=== PATIENT | male | born 1970 | race Caucasian/White ===

== ENCOUNTER 2020-04-03 07:05 | Day surgery (SDC) | payer BC ==
[~2020-04-03] VITALS: Ht 185.4 cm; Wt 88.5 kg
--- NOTE | 2020-04-03 09:22 | NUR ---
04/03/20 0922 Ele Nguyen 0915-PATIENT ARRIVED TO PACU ON 4L NC PLACED ON 2L RR EVEN. BITE BLOCK IN MOUTH PATIENT REACTIVE TO VERBAL STIMULI BITE BLOCK REMOVED. ABDOMEN SOFT. IVF INFUSING. 09-PATIENT AWAKE DENIES PAIN OR NAUSEA. PLACED ON RA. RR EVEN.
--- NOTE | 2020-04-03 10:38 | OR ---
[facility] [address], [place] [address] Signed DATE OF OPERATION: 04/03/2020 SURGEON: Raphael Albarado MD PREOPERATIVE DIAGNOSES: 1. Chronic proximal esophageal dysphagia. 2. Gastroesophageal reflux disease. 3. Hiatal hernia. 4. Screening. POSTOPERATIVE DIAGNOSES: 1. Bxzoe-om-deqroufy sized hiatal hernia. 2. Distal esophageal stricture. 3. Diffuse gastroduodenitis. 4. 8 mm polyp at 35 cm. 5. 6 mm polyp at 30 cm. 6. Moderate internal anal skin tags x2. PROCEDURES: 1. EGD with CLOtest and biopsies of the pyloric bulb and antrum with balloon dilation (54-Estonian). 2. Colonoscopy with hot biopsy. ESTIMATED BLOOD LOSS: None. INDICATIONS: Robert is a 50-year-old gentleman, asked to see me for upper and lower endoscopy. Interestingly, he talks about proximal esophageal dysphagia for at least 10 years. He thinks it is getting worse. He points to the area that the sternal notch maybe even higher than that. He said solids are worse than liquids. 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 He also works in the [employer] down here for [employer] with very dirty jason work. Also, he drinks alcohol every day, but he also uses cocaine 2 to 3 times a week, which he told us this morning when we could not get him asleep with Versed and fentanyl. He does not take any medications specifically for the acid reflux. In addition, he has been asked to see me for screening colonoscopy. He tells me he has no lower GI complaints. There is no family history of colon cancer or polyps. In the office, I had given him pamphlets on both upper and lower endoscopy. He understands the nature of the 2 tests. He understands there is risk including, but not limited to gas bloating, crampy abdominal pain, bleeding, Electronically Signed By: RAPHAEL ALBARADO MD 04/03/20 1038 PATIENT NAME: ROBERT DOZIER OPERATIVE REPORT DATE OF : 70 REPORT #: [id number] PHYSICIAN: RAPHAEL ALABRADO MD PCP: DELPHINE FONTAINE MD REPORT IS CONFIDENTIAL AND NOT TO BE RELEASED WITHOUT AUTHORIZATION [facility] [address] [place] [id number] Signed perforation requiring surgery, and missed diagnosis. We also talked about the possibility of dilating potential stricture. In that regard, we had sent him for a barium swallow. At the C4-C5 level, there was a very slight narrowing in his upper esophagus. He does point to this location as the area of his symptoms. His motility seemed to be fine. He does have a bandlike narrowing at the GE junction. It seemed to relax with Valsalva maneuvers. He also has a small hiatal hernia with moderate reflux. In the office, I had explained all this to him. We also had reviewed the bowel prep. We also reviewed the need for IV sedation. I explained him our Versed and fentanyl may not be enough to get him asleep and he might need monitor anesthesia care with propofol. He had expressed understanding and wished to proceed. DESCRIPTION OF PROCEDURE: Robert was taken into our endoscopy suite and placed in a supine semi-recumbent position. The posterior oropharynx was anesthetized with lidocaine spray. A bite block was utilized for the upper endoscopy. We gave him 5 mg of Versed and 100 mcg of fentanyl and he was still wide awake, talking to us. Consequently, we had an anesthesia provider come and add propofol. We almost need ketamine. He required significant boluses of the propofol above and beyond his drip throughout his upper and lower endoscopy procedures. The adult gastroscope had been introduced and advanced under direct visualization of camera. The hypopharynx, vocal cords, and arytenoids were all fine. I did not specifically see or feel any type of narrowing in his upper esophagus. We did see the bandlike narrowing right at the GE junction. He has minimal disruption to the Z-line. There was no Watkins's mucosa. He does have a ratls-eh-xqobirbg sized hiatal hernia. The scope had been passed all the way out into the duodenum. The duodenum was unremarkable. However, the pyloric bulb and the stomach showed moderate gastroduodenitis. We took biopsies from the pyloric bulb and the antrum for pathologic review. In addition, biopsy came out of the antrum for CLOtest. Upon retroflexion of the scope, we could see that he does have a hlssp-bx-lrlnppug sized hiatal hernia. We had met resistance with the gastroscope as it went through this band here at the lower esophageal sphincter. Consequently, there was a little blood in his fundus at that time. The scope was withdrawn back up to this area and we inserted the 54-Estonian balloon dilator. It was inflated and held in place for a minute and then the balloon could easily pass back and forth while inflated at the GE junction. The balloon was let down and removed. All hemostasis was good at the GE junction. The distal middle and upper esophagus were unremarkable. After this, the gas was suctioned out and the gastroscope removed. Robert tolerated the upper endoscopy quite well. Robert was rotated into the left lateral decubitus position. He was maintained on IV sedation with the propofol. A digital rectal exam was performed and I could feel the two internal anal skin tags. Prostate is already becoming a little indurated at his age. The adult colonoscope was introduced and advanced quite readily into the cecum itself. We could easily see the appendiceal orifice and ileocecal valve. The scope was Electronically Signed By: RAPHAEL ABLARADO MD 04/03/20 1038 PATIENT NAME: ROBERT DOZIER OPERATIVE REPORT DATE OF : 70 REPORT #: [id number] PHYSICIAN: RAPHAEL ALBARADO MD PCP: DELPHINE FONTAINE MD REPORT IS CONFIDENTIAL AND NOT TO BE RELEASED WITHOUT AUTHORIZATION [facility] [address] [place], [place] [address] Signed slowly withdrawn. The scope was quite good. He had no diverticulosis. The above 2 mentioned polyps were easily removed with the help of a hot biopsy forceps. The rectum was unremarkable. Upon retroflexion of scope, he does have the 2 moderate internal anal skin tags. Really not much in the way of internal hemorrhoid tissue. After this, the gas was suctioned out and the colonoscope was removed. Robert tolerated the procedure quite well. RECOMMENDATIONS: I will see Robert back in my office in 7 to 14 days to review his results. If he remains symptomatic with his upper esophageal area, we could empirically dilate that with an Micronesian dilator. Raphael Albarado MD ALB/MODL /[id number] cc: MD Raphael Nava MD Copies: DELPHINE FONTAINE DMD, ANDREW L MD ~ Electronically Signed By: RAPHAEL ALBARADO MD 04/03/20 1038 PATIENT NAME: ROBERT DOZEIR OPERATIVE REPORT DATE OF : 70 REPORT #: [id number] PHYSICIAN: RAPHAEL ALBARADO MD PCP: DELPHINE FONTAINE MD REPORT IS CONFIDENTIAL AND NOT TO BE RELEASED WITHOUT AUTHORIZATION
--- NOTE | 2020-04-04 16:29 | PATH ---
[facility] [address], [place] [address] Signed SPECIMEN(S): A DUODENUM BULB SPECIMEN(S): B ANTRUM/PYLORUS SPECIMEN(S): C PROXIMAL SIGMOID POLYP AT 35 CM SPECIMEN(S): D SIGMOID POLYP AT 30 CM SPECIMEN SOURCE: A. DUODENUM BULB B. ANTRUM/PYLORUS C. PROXIMAL SIGMOID POLYP AT 35 CM D. SIGMOID POLYP AT 30 CM CLINICAL HISTORY: Screening colonoscopy and EGD. Dysphagia, GERD, esophageal stricture. MICROSCOPIC DESCRIPTION: Histologic sections of all submitted blocks are examined by light microscopy. These findings, together with the gross examination, support the pathologic diagnosis. FINAL PATHOLOGIC DIAGNOSIS: A. Duodenum, bulb, biopsy: - Duodenal mucosa with Rajeev's gland hyperplasia. - Negative for dysplasia or malignancy. B. Stomach, antrum, biopsy: - Antral mucosa with reactive gastropathy. - Negative for Helicobacter organisms on HE stain. - Negative for dysplasia or malignancy. C. Colon, proximal sigmoid polyp at 35 cm, polypectomy: - Tubular adenoma. - Negative for high-grade dysplasia or malignancy. D. Colon, sigmoid polyp at 30 cm, polypectomy: - Tubular adenoma. - Negative for high-grade dysplasia or malignancy. NAL:cml:C2NR GROSS DESCRIPTION: Four specimens are received in four containers, labeled "JM." A. The specimen, labeled "JM, duodenal bulb biopsy," is received in formalin and consists of one dorsey soft tissue fragment that measures 0.2 cm in greatest dimension. The specimen is entirely submitted in cassette (A1). B. The specimen, labeled "JM, antrum biopsy," is received in formalin and PATIENT NAME: ROBERT DOIZER PATHOLOGY DATE OF : 70 REPORT #: [id number] PHYSICIAN: KATHERINE PATHOLOGY PCP: DELPHINE FONTAINE MD REPORT IS CONFIDENTIAL AND NOT TO BE RELEASED WITHOUT AUTHORIZATION [facility] [address], [place] [address] Signed consists of one dorsey soft tissue fragment that measures 0.1 cm in greatest dimension. The specimen is entirely submitted in cassette (B1). C. The specimen, labeled "JM, proximal sigmoid colon polyp at 35 cm," is received in formalin and consists of one dorsey soft tissue fragment that measures 0.2 cm in greatest dimension. The specimen is entirely submitted in cassette (C1). D. The specimen, labeled "JM, sigmoid colon polyp at 30 cm," is received in formalin and consists of one dorsey soft tissue fragment that measures 0.2 cm in greatest dimension. The specimen is entirely submitted in cassette (D1). JS (under the direct supervision of a pathologist) The Gross Description was prepared using a voice recognition system. The report was reviewed for accuracy; however, sound-alike word errors, addition and/or deletions may occur. If there is any question about this report, please contact Client Services. PERFORMING LABORATORY: The technical component was performed by [facility] [address] (Clinical Cytogeneticist Scientist: Judy Huston MD; CLIA# [id number]). Professional interpretation was performed by [facility], [address] [address] (CLIA# [id number]). Diagnostician: Maddie Hilliard MD Pathologist Electronically Signed 04/04/2020 Copies: ~ PATIENT NAME: TASIAROBERTJean Claude BHATAN PATHOLOGY DATE OF : 70 REPORT #: [id number] PHYSICIAN: KATHERINE HU PCP: DELPHINE FONTAINE MD REPORT IS CONFIDENTIAL AND NOT TO BE RELEASED WITHOUT AUTHORIZATION
== END 2020-04-03 09:51 | disposition home or self-care (01) ==
LOC: OPS 07:05 → DS 07:05 → OPS 09:00 → DS 09:00 → OPS 09:51
PROVIDERS: Colon & Rectal Surgery
PROC: 0D748ZZ Dilation of Esophagogastric Junction, Via Natural or Artificial Opening Endoscopic (ICD-10-PCS; 2020-04-03)
PROC: 0DBN8ZZ Excision of Sigmoid Colon, Via Natural or Artificial Opening Endoscopic (ICD-10-PCS; 2020-04-03)
PROC: 0DB98ZX Excision of Duodenum, Via Natural or Artificial Opening Endoscopic, Diagnostic (ICD-10-PCS; principal; 2020-04-03 09:00)
PROC: 0DB78ZX Excision of Stomach, Pylorus, Via Natural or Artificial Opening Endoscopic, Diagnostic (ICD-10-PCS; 2020-04-03 09:00)
DX: Z12.11 Encounter for screening for malignant neoplasm of colon (principal); D12.5 Benign neoplasm of sigmoid colon; K64.4 Residual hemorrhoidal skin tags; K64.8 Other hemorrhoids; K22.2 Esophageal obstruction; K31.9 Disease of stomach and duodenum, unspecified; K44.9 Diaphragmatic hernia without obstruction or gangrene; I10 Essential (primary) hypertension; K21.9 Gastro-esophageal reflux disease without esophagitis; F17.220 Nicotine dependence, chewing tobacco, uncomplicated
CPT/HCPCS: 86677; 99153; C1726; G0500; J2250; J2704; J3010; J7121